=== PATIENT | female | born 1935 | race Caucasian/White ===

== ENCOUNTER 2022-06-17 21:11 | Emergency (ER) | payer MEDICARE ==
[~2022-06-17] VITALS: Ht 162.6 cm; Wt 74.8 kg
[2022-06-17 21:39] LABS: HEMATOCRIT 31.1 % (31.2-41.9); MEAN CORPUSCULAR HEMOGLOBIN 32.5 uug (24.7-32.8); MEAN CORPUSCULAR VOLUME 96.8 fL (75.5-95.3); PLATELET COUNT (AUTO) 184 K/uL (179-408)
--- NOTE | 2022-06-17 21:50 | NUR ---
Patient BIB iv technician from home, assisted into bed, placed on monitor and informed of plan of care. Lab at bedside, cath for urine at this time, requested and given warm blanket. Awaiting MD exam. No s/s of any distress noted, will continue to monitor.
[2022-06-17 21:51] LABS: CARBON DIOXIDE 27 mmol/L (21-32); CHLORIDE 99 mmol/L (98-107); CREATININE 1.7 mg/dL (0.6-1.3); GLUCOSE 157 mg/dL (74-106); POTASSIUM 3.7 mmol/L (3.5-5.1); UREA NITROGEN, BLOOD 31 mg/dL (7-18)
[2022-06-17 21:58] LABS: *BILIRUBIN,URIN NEGATIVE (NEGATIVE); *BLOOD, URINE NEGATIVE (NEGATIVE); *CLARITY,URINE CLEAR (CLEAR); *COLOR,URINE YELLOW (YELLOW); *KETONES,URINE NEGATIVE (NEGATIVE); *UROBILINOGEN,URINE 0.2 E.U./dl (NORMAL); LEUKOCYTE ESTERASE ,URINE NEGATIVE (NEGATIVE); NITRITE, URINE NEGATIVE (NEGATIVE); PH,URINE 5.5 (5.0-8.0); UGLUCOSE NEGATIVE (NEGATIVE)
--- NOTE | 2022-06-17 22:01 | NUR ---
Radiology at bedside.
--- NOTE | 2022-06-17 22:59 | NUR ---
Repositioned for comfort.
[2022-06-18] MEDS ORDERED: ONDANSETRON HCL 4 MG TABLET PO ONE
[2022-06-18] MEDS ORDERED: ONDANSETRON HCL 4 MG TABLET ONE (00:14)
[2022-06-18] MEDS ORDERED: HYDROMORPHONE 1 MG/1 ML DISP.SYRIN ONE ×2 (00:15→01:46)
[2022-06-18] MEDS ORDERED: HYDR-3980 PO (00:56)
[2022-06-18] MEDS ORDERED: LIDOCAINE HCL 2% 20 ML VIAL ONE (01:10)
[2022-06-18] MEDS ORDERED: LIDOCAINE HCL 2% 20 ML VIAL IJ ONE (01:15)
[2022-06-18] MEDS ORDERED: HYDROMORPHONE 1 MG/1 ML DISP.SYRIN IM ONE ×2 (01:45)
--- NOTE | 2022-06-18 01:51 | NUR ---
MD was at bedside for procedure, patient medicated as per order for pain, family remains at bedside, aware patient will be discharged within ten minutes. Patient remains stable for discharge home with family.
[2022-06-18 01:54] VITALS: BP 163/63
--- NOTE | 2022-06-18 02:09 | NUR ---
[facility] transport called to transport patient back home. ETA less than one hour, patient and son informed.
== END 2022-06-18 03:02 | disposition home or self-care (01) ==
LOC: ER 21:11
DX: M25.462 Effusion, left knee (principal); S89.92XA Unspecified injury of left lower leg, initial encounter; W01.0XXA Fall on same level from slipping, tripping and stumbling without subsequent striking against object, initial encounter; Y92.89 Other specified places as the place of occurrence of the external cause; I73.00 Raynaud's syndrome without gangrene; Z79.899 Other long term (current) drug therapy; J45.909 Unspecified asthma, uncomplicated; Z85.828 Personal history of other malignant neoplasm of skin; Z88.6 Allergy status to analgesic agent; Z88.0 Allergy status to penicillin; Z88.8 Allergy status to other drugs, medicaments and biological substances; I87.2 Venous insufficiency (chronic) (peripheral)
CPT/HCPCS: 80048; 81003; 82607; 85025; 36415; 73502; 73560; 73590; 73600; 99284; 20610; 96372; J3490; J1170 ×2; C1758; Q0162